=== PATIENT | male | born 1970 | race Two or more races ===

== ENCOUNTER 2019-01-30 17:15 | Emergency (ER) | payer OTHER ==
[~2019-01-30] VITALS: Ht 172.7 cm; Wt 66.7 kg
--- NOTE | 2019-01-30 18:12 | NUR ---
PT TO ROOM WITH EDT.
--- NOTE | 2019-01-30 18:47 | NUR ---
NADEGE BLANCA, AT BEDSIDE TO EVALUATE PT.
--- NOTE | 2019-01-30 18:56 | NUR ---
PT AMBULATED TO BATHROOM FOR UA.
[2019-01-30] MEDS ORDERED: HYDROcodone/APAP 5/325 TABLET PO ONE (19:00)
[2019-01-30] MEDS ORDERED: HYDROcodone/APAP 5/325 TABLET ONE (19:07)
--- NOTE | 2019-01-30 19:11 | NUR ---
PT IN IMAGING, URINE SAMPLE SENT TO LAB, LABELS VERIFIED WITH PT'S , AT BEDSIDE.
--- NOTE | 2019-01-30 19:15 | NUR ---
PT BACK TO ROOM FROM IMAGING.
[2019-01-30 19:22] LABS: MICROSCOPIC AUTO
[2019-01-30 19:25] LABS: CULTURE INDICATED? YES
--- NOTE | 2019-01-30 19:49 | NUR ---
PT MEDICATED PER MAR.
--- NOTE | 2019-01-30 19:59 | NUR ---
RN at bedside for PIV start and lab draw. Pt and made aware of plan for CT scan with contrast for evaluation of kidney injury.
[2019-01-30 20:13] LABS: BASOPHILS # (AUTO) 0.07 x10^3/uL (0-0.1); BASOPHILS % (AUTO) 1 % (0-1); EOSINOPHILS # (AUTO) 0.01 x10^3/uL (0-0.4); EOSINOPHILS % (AUTO) 0 % (1-7); LYMPHOCYTES # (AUTO) 1.54 x10^3/uL (1-3.4); LYMPHOCYTES % (AUTO) 11 % (22-44); MD NO; MEAN CORPUSCULAR HEMOGLOBIN 25.7 pg (27.5-34.5); MEAN CORPUSCULAR VOLUME 77.9 fL (81-97); MEAN PLATELET VOLUME 9.6 fL (7.4-10.4); MONOCYTES # (AUTO) 0.52 x10^3/uL (0.2-0.8); MONOCYTES % (AUTO) 4 % (2-9); NEUTROPHILS # (AUTO) 12.45 x10^3/uL (1.8-6.8); NEUTROPHILS % (AUTO) 85 % (42-75); PLATELET COUNT 220 x10^3/uL (130-400); RED BLOOD COUNT 6.31 x10^6/uL (4.38-5.82); RED CELL DISTRIBUTION WIDTH 14.4 % (9.4-14.8)
[2019-01-30 20:24] LABS: ALANINE AMINOTRANSFERASE 54 U/L (12-78); ALBUMIN 4.2 g/dL (3.4-5.0); ANION GAP 4 mmol/L (5-15); CALCIUM 8.9 mg/dL (8.5-10.1); CHLORIDE 106 mmol/L (98-107)
[2019-01-30 20:26] LABS: ALKALINE PHOSPHATASE 101 U/L (45-117); BILIRUBIN,TOTAL 0.7 mg/dL (0.2-1.0); CREATININE 1.37 mg/dL (0.7-1.3); TOTAL PROTEIN 7.7 g/dL (6.4-8.2)
--- NOTE | 2019-01-30 20:35 | NUR ---
Pt to imaging, with tech, via [facility]rom[facility].
[2019-01-30] MEDS ORDERED: MORPHINE SULFATE 4 MG/ML, 1ML ONE (20:44)
[2019-01-30] MEDS ORDERED: ONDANSETRON 2MG/ML, 2ML ONE (20:44)
[2019-01-30 20:50] VITALS: BP 132/88
--- NOTE | 2019-01-30 20:50 | NUR ---
Pt medicated per MAR.
[2019-01-30] MEDS ORDERED: MORPHINE SULFATE 4 MG/ML, 1ML IVPush ONE (21:00)
[2019-01-30] MEDS ORDERED: ONDANSETRON 2MG/ML, 2ML IVPush ONE (21:00)
[2019-01-30] MEDS ORDERED: OMNIPAQUE 350 MG/ML, 100ML BOTTLE ONE (22:31)
== END 2019-01-30 21:55 | disposition home or self-care (01) ==
LOC: ED 19:02
DX: S37.001A Unspecified injury of right kidney, initial encounter (principal); R51 Headache; M25.532 Pain in left wrist; F17.210 Nicotine dependence, cigarettes, uncomplicated; V29.49XA Motorcycle driver injured in collision with other motor vehicles in traffic accident, initial encounter; Y93.89 Activity, other specified; Y92.89 Other specified places as the place of occurrence of the external cause; Y99.8 Other external cause status
CPT/HCPCS: 36415; 70450; 71101; 73110; 74177; 80053; 81001; 85025; 87086; 99284; Q9967